=== PATIENT | female | born 1990 | race American Indian/Alaskan Native ===

== ENCOUNTER 2019-10-11 13:44 | Emergency (ER) | payer SELFPAY ==
[2019-10-11 14:53] VITALS: BP 135/74
[2019-10-11] MEDS ORDERED: IBUPROFEN 600 MG TAB PO ONE (15:00)
[2019-10-11] MEDS ORDERED: HYDROcodone/ACETAMINOPHEN 5-325 MG TAB PO ONE (15:00)
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
== END 2019-10-11 16:46 | disposition left against medical advice (07) ==
LOC: ED 13:44
DX: M54.2 Cervicalgia (principal); M79.652 Pain in left thigh; F17.200 Nicotine dependence, unspecified, uncomplicated; Z79.899 Other long term (current) drug therapy
CPT/HCPCS: 99282